=== PATIENT | male | born 1955 | race Caucasian/White ===

== ENCOUNTER 2025-01-10 10:44 | Emergency (ER) | payer MEDICARE, OTHER ==
[~2025-01-10] VITALS: Ht 177.8 cm; Wt 84.8 kg
[2025-01-10 10:47] VITALS: TEMP 98.6
[2025-01-10 13:14] VITALS: BP 119/73; PULSE 64; RESP 18; O2SAT 100
== END 2025-01-10 13:52 | disposition home or self-care (01) ==
LOC: ER 10:46
DX: I82.422 Acute embolism and thrombosis of left iliac vein (principal); I82.432 Acute embolism and thrombosis of left popliteal vein; Z79.01 Long term (current) use of anticoagulants
CPT/HCPCS: 99281; A4615